=== PATIENT | male | born 1990 | race Caucasian/White ===

== ENCOUNTER 2018-12-07 18:22 | Emergency (ER) | payer OTHER, SELFPAY ==
[2018-12-07 18:43] VITALS: BP 118/70; PULSE 100; RESP 18; TEMP 36.6; O2SAT 97
--- NOTE | 2018-12-07 19:12 | ED.GENADUL_ITS ---
Discharge Plan Disposition Patient Disposition: HOME Condition: Stable Discharge Details Chief Complaint: RespSymp Clinical Impression: Community acquired pneumonia Primary Care Provider: Mandy Gaspar ED Provider: Levi Santana Home Meds and New Rx's Prescriptions: New doxycycline hyclate 100 mg capsule 100 mg PO BID Qty: 14 RF: 0 albuterol sulfate 90 mcg/actuation aerosol powdr breath activated 2 inh IH Q4H PRN (Reason: shortness of breath or wheezing) Qty: 1 RF: 0 prednisone 20 mg tablet 60 mg PO DAILY 5 Days Qty: 15 RF: 0 Discharge Instructions Instructions: Community Acquired Pneumonia (ED) Additional Instructions: We are starting you on treatment for early lung infection follow up with your primary care provider within 2 weeks if you feel you are becoming more ill or having worsening shortness of breath return to the emergency department Stand Alone Forms: Work Release Medical Decision Making 28 yo male who denies chronic medical problems, does vape and smoke marijuana denies other drug use who comes in with chief complaint of cough for 4 days without fevers and denies recent travel. He has no fever here and is in no respiratory distress. He does have coarse breath sounds on exam bilaterally with apical wheezing and does have some crackles in the left lower lobe consitent with clinical pneumonia HE is hd stable and appears well on exam in no distress and is tolerating po without hypoxia so do not feel lab work or cxr indicated. Will start him on abx and also albuterol and prednisone for the wheezing. ADvised f/u with pcp and return precautions given Differential Diagnosis Differential Diagnosis: bronchitis, pneumonia, rad HPI General Mode of arrival: ambulatory . Date/Time Provider Initiated Documentation: 12/07/18 18:22 . Limitations to Documentation: no limitations . Information obtained by: patient . History of Present Illness 28 year old M presents to the emergency department with the chief complaint of cough, described as moderate, and it has been constant. No relieving factors improve symptom(s), No exacerbating factors reported . Patient did receive the following treatments prior to arrival, none Related Data Home Medications Medication Instructions Recorded Confirmed albuterol sulfate 2 inh IH Q4H PRN #1 each 12/07/18 doxycycline hyclate 100 mg PO BID #14 cap 12/07/18 prednisone 60 mg PO DAILY 5 Days #15 tab 12/07/18 Previous Rx's Medication Instructions Recorded albuterol sulfate 2 inh IH Q4H PRN #1 each 12/07/18 doxycycline hyclate 100 mg PO BID #14 cap 12/07/18 prednisone 60 mg PO DAILY 5 Days #15 tab 12/07/18 Allergies Allergy/AdvReac Type Severity Reaction Status Date / Time No Known Allergies Allergy Unverified 12/07/18 18:46 General Stated Complaint: RespSymp BRANDYN: 4 Review of Systems Review of Systems ROS Unobtainable: All systems reviewed & are unremarkable except as noted in HPI and below Constitutional Constitutional: Denies chills and Denies fever(s) Gastrointestinal Gastrointestinal: Denies abdominal pain, Denies nausea and Denies vomiting Genitourinary Genitourinary: Denies dysuria Musculoskeletal Musculoskeletal: Denies joint swelling Integumentary/Breasts Skin/Breast: Denies rash PFSH Medical History ADHD (attention deficit hyperactivity disorder) Family History Mother No problems noted. Father Heart disease [place] Sister Mental disorder anxiety,depression Sister Asthma Social History Smoking/Tobacco Use Status: Current every day Tobacco Type: e-cigarettes Alcohol Intake: current Alcohol Intake frequency: 3 or more drinks per day Alcohol type: beer Drug use: Daily Substance use type: marijuana Do you feel safe at home: Yes Do you feel safe in your relationship?: Yes Exam Const General: no acute distress Orientation: alert HENMT Head: normal to inspection Ears: external ears normal General nose exam: external nose normal Mouth: moist mucous membranes Eyes General: appearance normal, both eyes and all related structures Neck Neck: normal visual inspection Resp Effort & Inspection: normal respiratory effort and able to speak in complete sentences Cardio Rate: regular rate Skin General skin exam: no rashes or lesions noted Neuro General: alert and oriented x3 Extrem General: normal to inspection Psych Mental Status: mental status grossly normal Course Vital Signs Vital signs: Vital Signs Temperature 36.6 C 12/07/18 18:43 Pulse 100 H 12/07/18 18:43 Respiratory Rate 18 12/07/18 18:43 Blood Pressure 118/70 12/07/18 18:43 Pulse Oximetry 97 12/07/18 18:43 Temperature 36.6 C 12/07/18 18:43 Temperature Source Temporal Artery Scan 12/07/18 18:43 Pulse 100 H 12/07/18 18:43 Respiratory Rate 18 12/07/18 18:43 Respiratory Effort Non-Labored 12/07/18 18:47 Blood Pressure 118/70 12/07/18 18:43 Blood Pressure Position Sitting 12/07/18 18:43 Pulse Oximetry 97 12/07/18 18:43 Oxygen Delivery Method Room Air 12/07/18 18:43 Oxygen Flow Rate 0 12/07/18 18:43 Pain Level 6 12/07/18 18:43 Comment 12/07/18 18:43
[2018-12-07 19:16] VITALS: BP 118/70; PULSE 100; RESP 18; TEMP 36.6; O2SAT 97
== END 2018-12-07 19:24 | disposition home or self-care (01) ==
LOC: ER 19:24
PROVIDERS: Emergency Provider Emergency Medicine; PCP Nurse Practitioner
DX: J18.9 Pneumonia, unspecified organism (principal); F17.210 Nicotine dependence, cigarettes, uncomplicated
CPT/HCPCS: 99283

== ENCOUNTER 2019-06-05 09:02 | Emergency (ER) | payer SELFPAY ==
[2019-06-05 09:05] VITALS: BP 144/79; PULSE 83; TEMP 36.6; O2SAT 99
--- NOTE | 2019-06-05 09:15 | ED.GENADUL_ITS ---
Discharge Plan Disposition Patient Disposition: HOME Condition: Stable Discharge Details Chief Complaint: DentalOral Clinical Impression: Dental infection Primary Care Provider: Mandy Gaspar ED Provider: Americo Mack Home Meds and New Rx's Prescriptions: New amoxicillin 875 mg tablet 875 mg PO BID Qty: 20 RF: 0 No Action albuterol sulfate 90 mcg/actuation aerosol powdr breath activated 2 inh IH Q4H PRN (Reason: shortness of breath or wheezing) Qty: 1 RF: 0 Discharge Instructions Instructions: Dental Abscess (ED) Additional Instructions: Amoxicillin as directed. [id number] Tylenol and/or Motrin as directed for discomfort. Warm compresses every 2 hours for 20 minutes. Please watch for new or worsening symptoms and return to the ER for any concerns. Using the dental list provided, establish a dentist for your ongoing outpatient dental needs. Medical Decision Making Dental pain for the past 3-4 days. Likely early infection but there is no obvious pointing abscess that would require incision and drainage at this time. Will provide antibiotic therapy, dental list, recommend [id number] medication for symptomatic control. Patient comfortable with this plan and has no additional questions or concerns HPI General Mode of arrival: ambulatory . Date/Time Provider Initiated Documentation: 06/05/19 09:02 . Limitations to Documentation: no limitations . Information obtained by: patient . HPI Narrative: 28-year-old gentleman presents to the ER today reporting moderate left dental discomfort worsening over the past 3-4 days. He reports poor dentition at baseline, does not smoke cigarettes but does chew tobacco. He does not have a dentist or seek regular dental hygiene. Denies any other symptoms such as ear pain, sore throat, cough, fever. Denies rash on his body. Reports that he believes he requires antibiotics. Does not need anything for pain Related Data Home Medications Medication Instructions Recorded Confirmed albuterol sulfate 2 inh IH Q4H PRN #1 each 12/07/18 06/05/19 amoxicillin 875 mg PO BID #20 tab 06/05/19 Previous Rx's Medication Instructions Recorded albuterol sulfate 2 inh IH Q4H PRN #1 each 12/07/18 amoxicillin 875 mg PO BID #20 tab 06/05/19 Allergies Allergy/AdvReac Type Severity Reaction Status Date / Time No Known Allergies Allergy Unverified 06/05/19 09:08 General Stated Complaint: DentalOral BRANDYN: 4 Review of Systems Constitutional Constitutional: Denies fever(s) and Denies headache(s) Eyes Eyes: Denies eye discharge ENT Ears, Nose, Mouth, and Throat: Denies otalgia, Denies headache(s) and Denies sore throat Respiratory Respiratory: Denies cough Integumentary/Breasts Skin/Breast: Denies rash Neurologic Neurologic: Denies headache(s) [facility] Medical History ADHD (attention deficit hyperactivity disorder) Family History Mother No problems noted. Father Heart disease [place] Sister Mental disorder anxiety,depression Sister Asthma Social History Smoking/Tobacco Use Status: Current every day Tobacco Type: e-cigarettes Alcohol Intake: current Alcohol Intake frequency: 3 or more drinks per day Alcohol type: beer Drug use: Daily Substance use type: marijuana Do you feel safe at home: Yes Do you feel safe in your relationship?: Yes Exam Const General: cooperative, healthy appearing, comfortable and no acute distress Orientation: alert and awake HENMT Head: normal to inspection, normocephalic and atraumatic Ears: external ears normal, TM's normal bilaterally and TM normal on the left General nose exam: external nose normal Face and sinus: tenderness on the left maxilla (With minimal swelling, no pointing abscess) Mouth: oral mucosae normal and moist mucous membranes Teeth and gingiva: poor dentition (Throughout.) Throat: posterior oropharynx normal Eyes Conjunctivae: conjunctivae normal Neck Neck: normal visual inspection, full ROM, no lymphadenopathy, trachea midline and supple Resp Effort & Inspection: normal respiratory effort and able to speak in complete sentences Auscultation: clear to auscultation bilaterally Cardio Rate: regular rate Rhythm: regular rhythm Skin General skin exam: no rashes or lesions noted Neuro General: alert, awake, moves all extremities and no focal motor deficits Sensory Exam: no sensory deficits noted Psych Appearance: grossly normal Mental Status: mental status grossly normal Course Vital Signs Vital signs: Vital Signs Temperature 36.6 C 06/05/19 09:05 Pulse 83 06/05/19 09:05 Blood Pressure 144/79 H 06/05/19 09:05 Pulse Oximetry 99 06/05/19 09:05 Temperature 36.6 C 06/05/19 09:05 Temperature Source Temporal Artery Scan 06/05/19 09:05 Pulse 83 06/05/19 09:05 Respiratory Effort Non-Labored 06/05/19 09:07 Blood Pressure 144/79 H 06/05/19 09:05 Blood Pressure Position Sitting 06/05/19 09:05 Pulse Oximetry 99 06/05/19 09:05 Oxygen Delivery Method Room Air 06/05/19 09:05 Oxygen Flow Rate 0 06/05/19 09:05 Pain Level 3 06/05/19 09:07
== END 2019-06-05 09:21 | disposition home or self-care (01) ==
LOC: ER 09:26
PROVIDERS: Emergency Provider Physician Assistant; PCP Nurse Practitioner
DX: R68.84 Jaw pain (principal); K04.7 Periapical abscess without sinus
CPT/HCPCS: 99283

== ENCOUNTER 2019-11-01 12:07 | Emergency (ER) | payer SELFPAY ==
[2019-11-01 12:10] VITALS: BP 144/84; PULSE 84; RESP 16; TEMP 36.7; O2SAT 100
--- NOTE | 2019-11-01 12:19 | W.ED.GENAD ---
Discharge Plan Disposition Patient Disposition: HOME Condition: Stable Discharge Details Chief Complaint: Nausea/Vomit/Diar Clinical Impression: Diarrhea Primary Care Provider: Mandy Gaspar ED Provider: Mayank Rodriguez Home Meds and New Rx's Prescriptions: New diphenoxylate-atropine [Lomotil] 2.5-0.025 mg tablet 1 tab PO DAILY PRN (Reason: diarrhea) Qty: 10 RF: 0 Continued albuterol sulfate 90 mcg/actuation aerosol powdr breath activated 2 inh IH Q4H PRN (Reason: shortness of breath or wheezing) Qty: 1 RF: 0 Discharge Instructions Instructions: Acute Diarrhea (ED) Additional Instructions: Small, frequent sips of fluid so that you maintain hydration. May use Lomotil once daily as needed to help control diarrhea. Return if felt a fever, abdominal bloating, bloody stool, or any other acute concerns. Please bring back your stool to the laboratory for analysis. Please follow-up with Mandy Gaspar in clinic for recheck. Stand Alone Forms: Work Release Medical Decision Making 28-year-old male with 3-1/2 days of nausea, vomiting, loose watery stool, bloating and gassy abdomen. No fever. No known sick contacts. He arrives with blood pressure 144/84, afebrile, interactive and pleasant. Differential diagnosis include gastroenteritis, Giardia, foodborne illness, dehydration or electrolyte abnormality. IV access established, patient given fluids and antiemetic. Referred for laboratory testing and stool O&P. Labs are reassuring. Stool studies are pending. Lab Data Lab results reviewed: Yes I reviewed the patient's lab results. Labs: Laboratory Results - last 24 hr 11/01/19 11/01/19 12:30 12:30 WBC 7.91 RBC 5.23 Hgb 16.2 Hct 48.1 MCV 92.0 MCH 31.0 MCHC 33.7 RDW 11.9 Plt Count 294 MPV 9.0 Immature Gran % 0.3 Neutrophils % 64.4 Lymphocytes % 24.7 Monocytes % 9.2 Eosinophils % 1.1 Basophils % 0.3 Absolute Neutrophils 5.10 Absolute Lymphocytes 1.95 Absolute Monocytes 0.73 Absolute Eosinophils 0.09 Absolute Basophils 0.02 Sodium 139 Potassium 4.0 Chloride 102 Carbon Dioxide 27.9 Anion Gap 9.1 BUN 10 Creatinine 0.98 Estimated GFR/1.73 m2 >= 60.00 Glucose 103 Calcium 9.1 Magnesium 1.7 L Total Bilirubin 0.7 AST 17 ALT 44 Alkaline Phosphatase 84 Total Protein 7.9 Albumin 4.3 HPI General Mode of arrival: ambulatory. Date/Time Provider Initiated Documentation: 11/01/19 12:14. Limitations to Documentation: no limitations. Information obtained by: patient. History of Present Illness 28 year old M presents to the emergency department with the chief complaint of Nausea, vomiting, diarrhea for 4 days, described as moderate, Quality is described as dull, and is localized to the abdomen. Patient reports no radiation. Patient started experiencing this day(s) and it has been intermittent. Rest improves symptom(s), Eating worsens symptoms . Patient notes loss of appetite and nausea/vomiting; denies fever/chills, syncope and weakness. Patient did receive the following treatments prior to arrival, none Related Data Home Medications Medication Instructions Recorded Confirmed albuterol sulfate 2 inh IH Q4H PRN #1 each 12/07/18 11/01/19 diphenoxylate-atropine [Lomotil] 1 tab PO DAILY PRN #10 tab 11/01/19 Previous Rx's Medication Instructions Recorded albuterol sulfate 2 inh IH Q4H PRN #1 each 12/07/18 diphenoxylate-atropine [Lomotil] 1 tab PO DAILY PRN #10 tab 11/01/19 Allergies Allergy/AdvReac Type Severity Reaction Status Date / Time No Known Allergies Allergy Unverified 11/01/19 12:14 General Stated Complaint: Nausea/Vomit/Diar BRANDYN: 3 Review of Systems Narrative: 6 systems reviewed and otherwise negative. No suspicious food contacts, drank from [employer] water 10 days ago. [facility] Medical History ADHD (attention deficit hyperactivity disorder) Family History Mother No problems noted. Father Heart disease [place] Sister Mental disorder anxiety,depression Sister Asthma Social History Smoking/Tobacco Use Status: Current every day Tobacco Type: smokeless tobacco Alcohol Intake: current Alcohol Intake frequency: 3 or more drinks per day Alcohol type: beer Drug use: Daily Substance use type: marijuana Do you feel safe at home: Yes Do you feel safe in your relationship?: Yes Exam Narrative Exam Narrative: GEN: awake, alert, oriented 3. Pleasant, well groomed, interactive. HEAD: Normocephalic, atraumatic ENT: Mucous membranes moist, oropharynx unremarkable, External ear exam unremarkable EYES: PERRL, EOMI NECK: Full ROM, no JUNG, no menigismus CHEST/RESP: Nontender, clear to auscultation bilateral, no wheeze/rhonchi/rales CARDIOVASCULAR: RRR, no murmur, rub nay. 2+ Rad pulse bilateral ABDOMEN: Soft, nontender, no mass. +Bowel sounds EXT: Full ROM, no edema, no rash Neuro: Grossly normal neurologic exam, conversant, interactive. Psych: Speech fluent, thoughts congruent, affect normal Course Vital Signs Vital signs: Vital Signs Temperature 36.7 C 11/01/19 12:10 Pulse 84 11/01/19 12:10 Respiratory Rate 16 11/01/19 12:10 Blood Pressure 144/84 H 11/01/19 12:10 Pulse Oximetry 100 11/01/19 12:10 Temperature 36.7 C 11/01/19 12:10 Temperature Source Skin 11/01/19 12:10 Pulse 84 11/01/19 12:10 Respiratory Rate 16 11/01/19 12:10 Respiratory Effort Non-Labored 11/01/19 12:14 Blood Pressure 144/84 H 11/01/19 12:10 Blood Pressure Position Sitting 11/01/19 12:10 Pulse Oximetry 100 11/01/19 12:10 Oxygen Delivery Method Room Air 11/01/19 12:10 Oxygen Flow Rate 0 11/01/19 12:10 Pain Level 3 11/01/19 12:10
[2019-11-01] MEDS: Ondansetron O.D.T. 4 MG TABEF PO (12:29)
[2019-11-01] MEDS: Normal Saline Flush 10 ML SYR IVP (12:30)
[2019-11-01] MEDS: Normal Saline 1,000 ML 1000 ML IV (12:30)
[2019-11-01 12:39] LABS: Abs Immature Grans 0.02 10^3/uL (0.0-0.06); Absolute Basophil Count 0.02 10^3/uL (0.0-0.2); Absolute Eosinophil Count 0.09 10^3/uL (0.0-0.7); Absolute Lymphocyte Count 1.95 10^3/uL (1.2-3.4); Absolute Monocyte Count 0.73 10^3/uL (0.1-0.8); Basophils % 0.3; Eosinophils % 1.1; HCT 48.1 % (40.0-50.0); HGB 16.2 g/dL (13.5-17.5); Immature Grans % 0.3; Lymphocytes % 24.7; MCHC 33.7 % (32.0-36.0); Monocytes % 9.2; Neutrophils % 64.4; Nucleated RBC 0 %; Platelet Count 294 10^3/uL (130-400); RBC 5.23 10^6/uL (4.36-5.78); RDW 11.9 % (11.8-14.1); RDW-SD 40.4 fL; WBC 7.91 10^3/uL (4.4-10.8)
[2019-11-01 12:54] LABS: ALT 44 U/L (16-63); AST 17 U/L (15-37); Albumin 4.3 g/dL (3.4-5.0); Alkaline Phosphatase 84 U/L (46-116); Anion Gap 9.1 mmol/L (3-11); BUN 10 mg/dL (7-18); Bilirubin, Total 0.7 mg/dL (0.2-1.0); CO2 27.9 mmol/L (21.0-32.0); CREATININE 0.98 mg/dL (0.70-1.30); Calcium 9.1 mg/dL (8.5-10.1); Chloride 102 mmol/L (98-107); Glucose 103 mg/dL (74-106); Magnesium 1.7 mg/dL (1.8-2.4); Sodium 139 mmol/L (136-145); Total Protein 7.9 g/dL (6.4-8.2)
[2019-11-01 13:32] VITALS: BP 123/75; PULSE 69; RESP 16; TEMP 36.5; O2SAT 100
== END 2019-11-01 13:36 | disposition home or self-care (01) ==
PROVIDERS: Emergency Provider Emergency Medicine; PCP Nurse Practitioner
DX: R19.7 Diarrhea, unspecified (principal); R10.13 Epigastric pain; R14.0 Abdominal distension (gaseous)
CPT/HCPCS: 36415; 80053; 96360; 99284; 83735; 85025; 99283

== ENCOUNTER 2021-08-09 14:42 | Emergency (ER) | payer SELFPAY ==
[2021-08-09 14:46] VITALS: BP 154/99; PULSE 113; RESP 18; TEMP 36.3; O2SAT 100
--- NOTE | 2021-08-09 15:00 | ED.GENADUL_ITS ---
Discharge Plan Disposition Patient Disposition: HOME Condition: Stable Discharge Details Clinical Impression: Viral syndrome Primary Care Provider: Mandy Gaspar ED Provider: Shefali Schroeder Home Meds and New Rx's Prescriptions: No Action No Known Home Meds Discharge Instructions Instructions: Viral Syndrome (ED) Additional Instructions: Your symptoms could be due to COVID-19, influenza or another viral illness. Follow-up for your scheduled COVID test tomorrow. Drink plenty of fluids and get plenty of rest. Alternate tylenol and motrin as needed and directed for pain. Follow-up with your primary care doctor in 1 week. Return to the emergency department with any worsening or new concerning symptoms. Stand Alone Forms: Work Release Discharge Data Discharge Physician: Shefali Schroeder Medical Decision Making 30-year-old male presents with flulike symptoms for the past few days with request for return to work note. Heart rate 110s on arrival. Heart rate improved on my evaluation. He appears comfortable and nontoxic, breathing comfortably with no signs of respiratory distress. Normal ENT exam. Lungs clear. Patient offered Fluvid test here but he declined. He states he has an outpatient COVID test scheduled for tomorrow. Patient is just requesting a work note. Work note provided. Advised to follow up with the primary care doctor for re-evaluation. Usual and customary return precautions given prior to discharge. Medical Records Medical records reviewed: Yes I reviewed the patient's medical records. HPI General Mode of arrival: ambulatory . Date/Time Provider Initiated Documentation: 08/09/21 14:55 . Limitations to Documentation: no limitations . Information obtained by: patient . HPI Narrative: Patient is a 4-year-old male who presents the ED with request for a return to work note. Patient states that 3 days ago he developed runny nose, sore throat, cough, fever and chills but states the symptoms have been improving and he would like 1 more day before he returns to work on Tuesday. Patient states he has had a low-grade temperature at 100.5. He states he has been taking Tylenol, ibuprofen and [id number] cough and cold medication. He states he was planning to return to work on Tuesday but discussed with his employer who advised that he receive a return to work note. Patient denies any chest pain, difficulty breathing, abdominal pain, vomiting or diarrhea. He states he has been taking at home COVID test which have been negative. He states he has a COVID test scheduled at [facility] tomorrow. Related Data Home Medications Medication Instructions Recorded Confirmed Unknown [No Known Home Meds] 08/09/21 08/09/21 Allergies Allergy/AdvReac Type Severity Reaction Status Date / Time No Known Allergies Allergy Unverified 08/09/21 14:54 General Stated Complaint: Fever BRANDYN: 4 Review of Systems All systems reviewed & are unremarkable except as noted in HPI and below Constitutional Constitutional: Reports as per HPI, Denies chills and Denies fever(s) Eyes Eyes: Denies blurry vision ENT Ears, Nose, Mouth, and Throat: Denies dizziness, Reports nasal congestion, Reports nasal discharge, Reports sore throat and Denies throat swelling Cardiovascular Cardiovascular: Denies chest pain and Denies dyspnea Respiratory Respiratory: Denies cough and Denies dyspnea Gastrointestinal Gastrointestinal: Denies abdominal pain, Denies diarrhea and Denies vomiting Genitourinary Genitourinary: Denies hematuria and Denies dysuria Musculoskeletal Musculoskeletal: Denies back pain and Denies numbness Integumentary/Breasts Skin/Breast: Denies lesions and Denies rash Neurologic Neurologic: Denies dizziness, Denies localized weakness and Denies numbness Allergic/Immunologic Allergic/Immunologic: Denies throat swelling PFSH All Active Problems (Updated 08/09/21 @ 15:09 by Shefali Schroeder DO) Viral syndrome (Acute) Medical History (Updated 08/09/21 @ 15:09 by Shefali Schroeder DO) ADHD (attention deficit hyperactivity disorder) Surgical History (Updated 08/09/21 @ 16:10 by Shefali Schroeder DO) No significant past surgical history Family History Mother No problems noted. Father Heart disease [place] Sister Mental disorder anxiety,depression Sister Asthma Social History Smoking/Tobacco Use Status: Current every day Tobacco Type: smokeless tobacco Smoking risk assessment performed?: Yes Alcohol Intake: current Alcohol Intake frequency: 3 or more drinks per day Alcohol type: beer Drug use: Daily Substance use type: marijuana Do you feel safe at home: Yes Do you feel safe in your relationship?: Yes Exam Const General: cooperative, healthy appearing and no acute distress Orientation: alert, awake and oriented x3 HENMT Head: normal to inspection Ears: hearing grossly normal bilaterally, external ears normal and TM's normal bilaterally General nose exam: external nose normal Face and sinus: normal facial exam Mouth: oral mucosae normal Throat: posterior oropharynx normal Eyes General: appearance normal, both eyes and all related structures Neck Neck: normal visual inspection Resp Effort & Inspection: normal respiratory effort and able to speak in complete sentences Auscultation: clear to auscultation bilaterally Cardio Rate: regular rate Skin General skin exam: no rashes or lesions noted Neuro General: patient alert, patient awake and patient oriented x3 Motor: muscle tone normal throughout Extrem General: normal to inspection and full ROM Psych Appearance: grossly normal Affect: normal affect Course Vital Signs Vital signs: Vital Signs Temperature 97.3 F L 08/09/21 14:46 Pulse 113 H 08/09/21 14:46 Respiratory Rate 18 08/09/21 14:46 Blood Pressure 154/99 H 08/09/21 14:46 Pulse Oximetry 100 08/09/21 14:46 Temperature 97.3 F L 08/09/21 14:46 Temperature Source Skin 08/09/21 14:46 Pulse 113 H 08/09/21 14:46 Respiratory Rate 18 08/09/21 14:46 Respiratory Effort 08/09/21 14:56 Blood Pressure 154/99 H 08/09/21 14:46 Blood Pressure Position Sitting 08/09/21 14:46 Pulse Oximetry 100 08/09/21 14:46 Oxygen Delivery Method Room Air 08/09/21 14:46 Oxygen Flow Rate 0 08/09/21 14:46 Pain Level 1 08/09/21 14:46 PAWSS Have you Been Recently Intoxicated or Drunk Within the Last 30 days?: No Have you Ever Experienced Previous Episodes of Alcohol Withdrawal?: No Have you ever Experienced Withdrawal Seizures?: No Have you ever Experienced Delirium Tremens(DT)s?: No Have you ever undergone Alcohol Rehabilitation Treatment (i.e, inpt ot outpatient treatment programs)?: No Have you ever Experienced Blackouts?: No Have you ever Combined Alcohol with other Downers within the last 90 days?: No Have you ever Combined Alcohol with any other Substance of Abuse during the last 90 days?: No Positive Blood Alcohol level on Presentation? [PCS.BAL]: No Evidence of Increased Autonomic Activity (i.e. HR>120, tremor, sweating, agitation, nausea)?: No Result: 0
== END 2021-08-09 15:19 | disposition home or self-care (01) ==
PROVIDERS: Emergency Provider Physician Assistant; PCP Nurse Practitioner
DX: B34.9 Viral infection, unspecified (principal)
CPT/HCPCS: 99281; 99282

== ENCOUNTER 2024-12-17 15:50 | Emergency (ER) | payer SELFPAY ==
[2024-12-17 15:53] VITALS: BP 165/98; PULSE 120; RESP 18; TEMP 38.1; O2SAT 95
[2024-12-17 15:58] VITALS: BP 165/98; PULSE 120; RESP 18; TEMP 38.1; O2SAT 95
--- NOTE | 2024-12-17 16:00 | DI.RAD_ITS ---
Exam(s) XR CHEST 2V PA LATERAL EXAM: XR CHEST 2V PA LATERAL CLINICAL HISTORY: fever, cough, wheezing TECHNIQUE: 2D digital imaging was performed of the chest. Two images were obtained. PA and lateral views were obtained. COMPARISON: No exams were available for comparison FINDINGS: MEDIASTINUM: Normal. HEART: Normal. PULMONARY VASCULATURE: Normal. LUNGS: Clear. PLEURAL SPACE: No pleural effusion or pneumothorax. BONE:Within normal limits for the patient's age. OTHER FINDINGS:Normal. IMPRESSION: No acute pulmonary findings. DATA REPOSITORY: RADIATION DOSE DELIVERED:
--- NOTE | 2024-12-17 16:14 | ED.GENADUL_ITS ---
Discharge Plan Disposition Patient Disposition: Home Condition: Stable Discharge Details Clinical Impression: Upper respiratory infection, viral, Elevated ALT measurement Primary Care Provider: Unknown,Unknown ED Provider: Pastora Lucio Recommendations for Follow Up Recommended tests to be ordered by follow up provider: Liver function test Home Meds and New Rx's Prescriptions: No Action No Known Home Meds Discharge Instructions Instructions: Viral Upper Respiratory Infection, Adult (DC) Additional Instructions: You were seen in the emergency department today for evaluation of fever, body aches, cough, and were found to have a viral upper respiratory infection. You had reassuring laboratory studies including a negative COVID and influenza test. You had an x-ray that did not show any signs of pneumonia. You were incidentally noted to have a slight elevation in one of your liver enzymes, and should have these levels rechecked by your primary care provider during your initial visit. I placed a referral for you to establish with a primary care provider. Given your wheezing I did provide you with a an albuterol inhaler, you can use this as needed, 2 puffs every 4-6 hours for shortness of breath or severe cough. Please use therapeutic dosing of Tylenol (acetaminophen) & Advil (ibuprofen) in an alternating fashion as follows: Take 1000mg of Tylenol every 6 hours without missing doses- that is 4 times per day. [place] in between the Tylenol doses, take 600mg of Advil also on a 6 hour schedule, that is also 4 times per day. With this strategy, you will be taking something for fever/pain as often as every 3 hours. The daily maximum dosing of Tylenol is 4000mg, and the daily maximum dosing of Advil is 2400mg. Please note that some common cold medications & prescription pain medications may contain acetaminophen and you need to read OTC drug labels and factor that in to maximum daily doses. Please maintain good hydration and nutrition, and please follow-up with your primary care provider in the next few days to discuss this visit and any symptoms that change, worsen, or persist. Thank you for allowing us to be part of your care. Stand Alone Forms: Work Release HPI General Mode of arrival: ambulatory . Date/Time Provider Initiated Documentation: 12/17/24 15:57 . Limitations to Documentation: no limitations . Information obtained by: patient, family and old records reviewed . HPI Narrative: This is a 34-year-old male patient, with a history of nicotine vaping and alcohol use, presenting for evaluation of fever, cough, and bodyaches. States that he has been sick since Tuesday, nobody else in the home is sick, his symptoms have been worsening despite use of Robitussin and NyQuil. He reports that he has had numerous episodes of posttussive emesis, has had loose stools as well. He reports that he is otherwise healthy, has been trying to maintain his hydration but it has been difficult with the vomiting. Has no personal history of asthma but does have a family history and has used inhalers in the past. Has not gotten the flu or COVID-vaccine yet this year. Related Data Home Medications ?Medication ?Instructions ?Recorded ?Confirmed Unknown [No Known Home Meds] 08/09/21 0 12/17/24 Allergies Allergy/AdvReac Type Severity Reaction Status Date / Time No Known Allergies Allergy Unverified 12/17/24 15:55 General Stated Complaint: RespSymp BRANDYN: 3 Exam Narrative Exam Narrative: Gen: Awake and alert, in no apparent distress HEENT: Non-icteric sclera, PERRL. Posterior pharynx without erythema, exudate, or asymmetry Neck: Supple Lungs: No apparent respiratory distress, normal respiratory effort. Lung sounds with diffuse expiratory wheezing, no rhonchi or rales. CV: Appears well perfused, heart with tachycardic rate but regular rhythm, strong distal pulses Abdomen: Non-distended, soft MSK: Moves 4 extremities without apparent limitation in ROM. No peripheral edema Skin: Visualized skin without rashes, cyanosis. Neuro: Normal Gait, no obvious focal deficits or facial asymmetry. Speaks in full, clear sentences. Psych: Appropriate for situation. Course Vital Signs Vital signs: Vital Signs Temperature 38.1 C H 12/17/24 15:53 Pulse 120 H 12/17/24 15:53 Respiratory Rate 18 12/17/24 15:53 Blood Pressure 165/98 H 12/17/24 15:53 Pulse Oximetry 95 12/17/24 15:53 Temperature 38.1 C H 12/17/24 15:53 Temperature Source Tympanic 12/17/24 15:53 Pulse 120 H 12/17/24 15:53 Respiratory Rate 18 12/17/24 15:53 Blood Pressure 165/98 H 12/17/24 15:53 Pulse Oximetry 95 12/17/24 15:53 Oxygen Delivery Method Room Air 12/17/24 15:53 Oxygen Flow Rate 0 12/17/24 15:53 Pain Level 0 12/17/24 15:53 Medical Decision Making This is a 34-year-old male patient presenting for evaluation of fever, shortness of breath and wheezing, cough, and bodyaches. Differential includes but is not limited to viral upper respiratory infection, pneumonia, bronchitis, reactive airway disease exacerbation. Considered gastroenteritis given the presence of diarrhea and posttussive emesis. No abdominal discomfort suggestive of severe intra-abdominal pathology such as appendicitis, diverticulitis, bowel ob struction. No urinary symptoms to suggest renal stone or UTI. Certainly considered sepsis and bacteremia. No chest pain to suggest ACS, patient's symptoms are most concerning for infectious pathology and I have a low concern for pulmonary embolism, pneumothorax, pulmonary edema or pleural effusion. We will obtain a Fluvid swab, labs to include CBC, CMP, and magnesium. I will obtain an x-ray of the chest, and provide the patient with Tylenol, Toradol, a liter of IV fluids, and a nebulizer treatment. - I independently interpreted the laboratory studies, which show no significant leukocytosis, anemia, or thrombocytopenia. The chemistry panel is without evidence of electrolyte abnormality, kidney dysfunction, or liver injury, other than a incidentally noted elevation in his ALT to 95, bilirubin 1.3. I advised the patient he would need to have these rechecked by his primary care provider after resolution of his illness.. COVID and influenza test negative. On reevaluation the patient reports significant improvement after medications, wheezing has improved and he has had resolution of his tachycardia. He has maintained his oxygen sats without the need for supplemental oxygen throughout his time in the ED. I provided the patient with a referral to establish with a primary care provider as well as a take-home albuterol inhaler to utilize for wheezing during this illness. At this time, the patient has had a full medical evaluation and is safe for discharge to home. They are hemodynamically stable, ambulatory, and tolerating PO. They are understanding of the follow-up plan and return precautions. They left our facility without incident. Pastora Lucio MD [facility] All Active Problems (Updated 12/17/24 @ 17:52 by Pastora Lucio MD) Elevated ALT measurement (Acute) Upper respiratory infection, viral (Acute) Medical History ADHD (attention deficit hyperactivity disorder) Surgical History No significant past surgical history Family History Mother No problems noted. Father Heart disease [place] Sister Mental disorder anxiety,depression Sister Asthma Social History Smoking/Tobacco Use Status: Current every day Tobacco Type: smokeless tobacco Smoking risk assessment performed?: Yes Alcohol Intake: current Alcohol Intake frequency: 3 or more drinks per day Alcohol type: beer Drug use: Daily Substance use type: marijuana Do you feel safe at home: Yes Do you feel safe in your relationship?: Yes
[2024-12-17 16:31] VITALS: PULSE 113; RESP 31; O2SAT 94
[2024-12-17] MEDS: Albuterol/Ipratropium 3 ML UPD VIAL UPD (16:31)
[2024-12-17] MEDS: Acetaminophen 500 MG TAB 1000 MG PO (16:36)
[2024-12-17] MEDS: Ketorolac 15 MG/ML VIAL IVP (16:37)
[2024-12-17] MEDS: Lactated Ringers 1,000 ML 1000 ML IV (16:38)
[2024-12-17 16:42] LABS: COVID-19 PCR Negative (Negative); RSV PCR Negative (Negative)
[2024-12-17 16:57] LABS: Abs Immature Grans 0.03 10^3/uL (0.0-0.06); HCT 47.1 % (40.0-50.0); HGB 16.1 g/dL (13.5-17.5); Immature Grans % 0.3 %; MCH 30.6 pg (27.0-33.0); MCHC 34.2 % (32.0-36.0); MCV 90 fL (80-95); MPV 8.9 fL (8.0-11.0); Platelet Count 230 10^3/uL (130-400); RBC 5.26 10^6/uL (4.36-5.78); RDW 12.0 % (11.8-14.1); RDW-SD 39.1 fL; WBC 8.69 10^3/uL (4.4-10.8)
[2024-12-17 17:10] LABS: ALT 95 U/L (16-63); AST 25 U/L (15-37); Albumin 4.3 g/dL (3.4-5.0); Alkaline Phosphatase 130 U/L (46-116); Anion Gap 9.0 mmol/L (3-11); BUN 9 mg/dL (7-18); Bilirubin, Total 1.3 mg/dL (0.2-1.0); CO2 26.0 mmol/L (21.0-32.0); Calcium 9.3 mg/dL (8.5-10.1); Chloride 101 mmol/L (98-107); Estimated GFR 116.37 (mL/min/1.73m2); Glucose 99 mg/dL (74-106); Magnesium 2.0 mg/dL (1.8-2.4); Potassium 4.2 mmol/L (3.5-5.1); Sodium 136 mmol/L (136-145); Total Protein 8.0 g/dL (6.4-8.2)
[2024-12-17 18:05] VITALS: BP 123/72; PULSE 91; RESP 24; TEMP 37.6; O2SAT 96
[2024-12-17] MEDS: Albuterol HFA 8 GM 60 PUFF INH IH (18:07)
[2024-12-17 18:12] VITALS: BP 123/72; PULSE 91; RESP 22; TEMP 37.6; O2SAT 96
== END 2024-12-17 18:12 | disposition home or self-care (01) ==
PROVIDERS: Emergency Provider Emergency Medicine
DX: J06.9 Acute upper respiratory infection, unspecified (principal); B97.89 Other viral agents as the cause of diseases classified elsewhere; R74.01 Elevation of levels of liver transaminase levels
CPT/HCPCS: 80053; 87637; 94640; 96374; 99284; 71046; 83735; 85025; J1885; J7620